=== PATIENT | male | born 1980 | race Caucasian/White ===

== ENCOUNTER 2021-04-15 22:43 | Observation (INO) | payer BC ==
[2021-04-15 23:41] LABS: #Eosinphils 0.1 thou/uL (0.0-0.7); #Lymphocytes 1.5 thou/uL (1.20-3.40); #Monocytes 0.9 thou/uL (0.11-0.59); #Neutrophils 9.4 thou/uL (1.40-6.50); %Basophils 0.3 % (0.0-1.0); %Eosinophils 0.9 % (0.0-10.0); %Lymphocytes 12.7 % (21.0-51.0); %Monocytes 7.8 % (0.0-10.0); %Neutrophils 78.3 % (42.0-75.0); Hemoglobin 14.5 g/dL (14.0-18.0); Mean Corpuscular HGB CONC 33.8 g/dL (32.0-36.0); Mean Corpuscular Hemoglobin 30.1 pg (27.0-31.0); Mean Corpuscular Volume 89.2 fL (78.0-98.0); Platelet Count 180 thou/uL (130-400); RBC Distribution Width 11.9 % (11.5-14.5); Red Blood Cell (RBC) Count 4.82 mill/uL (4.70-6.10)
[2021-04-15 23:43] LABS: Bacteria/HPF None Seen HPF (None Seen); Bilirubin Negative (Negative); Blood, Urine 3+ (Negative); Clarity Turbid (Clear); Glucose, Urine (Dipstick) Normal (Negative); Ketone, Urine Negative (Negative); Leukocyte Negative Leu/uL (Negative); Nitrite Negative (Negative); Protein, Urine (Dipstick) 50 mg/dL (Neg-Trace); RBC/HPF Greater than 50 HPF (0-3); Squamous Epithelial 0-3 HPF (0-3); Urobilinogen Normal mg/dL (Less than 2); pH, Urine 5.5 (5.0-9.0)
[2021-04-16 00:04] LABS: ALT (SGPT) 90 U/L (8-55); AST (SGOT) 35 U/L (5-34); Albumin 4.4 g/dL (3.5-5.0); Alkaline Phosphatase 66 U/L (40-110); Anion Gap 11 mmol/L (10-20); BUN (Urea Nitrogen) 12 mg/dL (8.9-20.6); Bilirubin, Total 0.5 mg/dL (0.2-1.2); Calc. Creatinine Clearance 0 mL/min (70-130); Calcium 9.6 mg/dL (7.8-10.44); Carbon Dioxide 29 mmol/L (22-29); Chloride 105 mmol/L (98-107); Globulin 3.1 g/dL (2.4-3.5); Glucose 131 mg/dL (70-105); Potassium 4.4 mmol/L (3.5-5.1); Protein, Total 7.5 g/dL (6.0-8.3); Sodium 141 mmol/L (136-145)
[2021-04-16] MEDS ORDERED: Ondansetron PF 4 MG/2 ML Vial ONE ×3 (00:04→13:54)
[2021-04-16] MEDS ORDERED: Morphine 4 MG/ML VIAL ONE ×3 (00:04→15:10)
[2021-04-16] MEDS ORDERED: Ketorolac Tromethamine 30 MG/ML VIAL IVP PRN (00:46)
[2021-04-16] MEDS ORDERED: HYDROcodone/Acetaminophen 10/325 mg Tablet PO PRN (00:47)
[2021-04-16] MEDS ORDERED: cefTRIAXone\\ROCEPHIN 2 GM VIAL ONE (00:52)
[2021-04-16] MEDS ORDERED: Acetaminophen 325 MG TAB PO PRN (01:35)
[2021-04-16] MEDS: Sodium Chloride 0.9% 1,000 ML IV SCH ×4 (02:38→23:26)
[2021-04-16] MEDS: Morphine 4 MG/ML VIAL SLOW IVP PRN ×2 (02:38→08:31)
[2021-04-16 03:04] VITALS: BMI 36.6
[2021-04-16 05:55] LABS: #Monocytes 0.9 thou/uL (0.11-0.59); #Neutrophils 9.2 thou/uL (1.40-6.50); %Basophils 0.1 % (0.0-1.0); %Eosinophils 0.2 % (0.0-10.0); %Lymphocytes 9.2 % (21.0-51.0); %Monocytes 7.6 % (0.0-10.0); Hemoglobin 13.8 g/dL (14.0-18.0); Mean Corpuscular HGB CONC 33.5 g/dL (32.0-36.0); Mean Corpuscular Hemoglobin 29.9 pg (27.0-31.0); Mean Corpuscular Volume 89.1 fL (78.0-98.0); Mean Platelet Volume 9.6 fL (7.4-10.4); Platelet Count 170 thou/uL (130-400); RBC Distribution Width 11.9 % (11.5-14.5); Red Blood Cell (RBC) Count 4.63 mill/uL (4.70-6.10); White Blood Cell (WBC) Count 11.1 thou/uL (4.8-10.8)
[2021-04-16 06:10] LABS: Anion Gap 10 mmol/L (10-20); BUN (Urea Nitrogen) 12 mg/dL (8.9-20.6); Calc. Creatinine Clearance 128 mL/min (70-130); Calcium 8.7 mg/dL (7.8-10.44); Carbon Dioxide 25 mmol/L (22-29); Chloride 108 mmol/L (98-107); Glucose 122 mg/dL (70-105); Potassium 4.4 mmol/L (3.5-5.1); Sodium 139 mmol/L (136-145)
[2021-04-16 06:11] LABS: Hemoglobin A1c 5.2 % (4.0-6.0)
[2021-04-16 06:21] LABS: Cardiac Risk 4.8 (Less than 4.5)
[2021-04-16] MEDS ORDERED: Enoxaparin Sodium 40 MG/0.4 ML SYRINGE SC SCH (09:00)
[2021-04-16 10:25] LABS: SARS-CoV-2 NAA Rapid Test Not Detected (NotDetected)
[2021-04-16] MEDS ORDERED: Fentanyl 100 MCG/2 ML VIAL ONE ×2 (13:21→13:39)
[2021-04-16] MEDS ORDERED: Iothalamate Meglumine 60% 50 ML VIAL FS ONE (13:48)
[2021-04-16] MEDS ORDERED: Dexamethasone 20 MG/5 ML VIAL ONE (13:54)
[2021-04-16] MEDS ORDERED: PROPOFOL 200 MG/20 ML VIAL ONE (13:54)
[2021-04-16] MEDS ORDERED: Levofloxacin 500 mg/D5W 100 ml Premix Bag ONE (14:08)
[2021-04-16] MEDS ORDERED: hydrALAZINE 20 MG/ML VIAL SLOW IVP PRN ×2 (14:58)
[2021-04-16] MEDS ORDERED: Mag-Al 1200 mg/1200 mg/30 ML UDCUP PO PRN (14:58)
[2021-04-16] MEDS ORDERED: Oxybutynin 5 MG TAB PO PRN (14:58)
[2021-04-16] MEDS ORDERED: diphenhydrAMINE 50 MG/ML VIAL IVP PRN (14:58)
[2021-04-16] MEDS ORDERED: HYDROcodone/Acetaminophen 5/325 mg Tablet PO PRN ×2 (14:58)
[2021-04-16] MEDS ORDERED: Phenazopyridine HCl 100 MG TAB PO PRN (15:04)
[2021-04-16] MEDS ORDERED: Non-Formulary Medication 1 EACH PO PRN (15:19)
[2021-04-16] MEDS ORDERED: Morphine Sulfate 2 MG/ML SYRINGE SLOW IVP PRN (15:30)
[2021-04-16] MEDS ORDERED: Promethazine HCl 25 MG/ML VIAL IM/IV PRN (15:30)
[2021-04-16] MEDS ORDERED: Ondansetron HCl/PF 4 MG/2 ML Vial IVP PRN (15:30)
[2021-04-16] MEDS ORDERED: PACU-Morphine 4MG/ML VIAL SLOW IVP PRN (15:30)
[2021-04-16] MEDS: Docusate 100 MG CAP PO SCH (20:59)
[2021-04-16] MEDS: Famotidine/PF 20 mg/2ml Vial SLOW IVP SCH (20:59)
[2021-04-16] MEDS ORDERED: cefTRIAXone\\ROCEPHIN 1 GM in Sodium Chloride 0.9% 100 ML IVPB SCH (23:00)
[2021-04-17 04:02] VITALS: TEMP 97.9
[2021-04-17 06:03] LABS: %Basophils 0.3 % (0.0-1.0); %Eosinophils 0.1 % (0.0-10.0); %Lymphocytes 9.1 % (21.0-51.0); %Monocytes 8.7 % (0.0-10.0); %Neutrophils 81.9 % (42.0-75.0); Mean Corpuscular HGB CONC 32.6 g/dL (32.0-36.0); Mean Corpuscular Hemoglobin 29.5 pg (27.0-31.0); Mean Corpuscular Volume 90.4 fL (78.0-98.0); Mean Platelet Volume 9.8 fL (7.4-10.4); Platelet Count 163 thou/uL (130-400); RBC Distribution Width 11.7 % (11.5-14.5); Red Blood Cell (RBC) Count 4.42 mill/uL (4.70-6.10)
[2021-04-17 07:37] LABS: Chloride 108 mmol/L (98-107); Potassium 3.9 mmol/L (3.5-5.1); Sodium 140 mmol/L (136-145)
[2021-04-17 07:38] LABS: Calcium 8.5 mg/dL (7.8-10.44); Glucose 110 mg/dL (70-105)
[2021-04-17 07:40] LABS: Anion Gap 11 mmol/L (10-20); Carbon Dioxide 25 mmol/L (22-29)
[2021-04-17 07:42] LABS: BUN (Urea Nitrogen) 15 mg/dL (8.9-20.6); Calc. Creatinine Clearance 149 mL/min (70-130)
[2021-04-17] MEDS ORDERED: Tamsulosin HCl 0.4 MG CAP PO SCH (09:00)
[2021-04-17] MEDS: Docusate 100 MG CAP PO SCH (10:47)
[2021-04-17] MEDS: Famotidine/PF 20 mg/2ml Vial SLOW IVP SCH (10:47)
[2021-04-17] MEDS: Sodium Chloride 0.9% 1,000 ML IV SCH (10:48)
[2021-04-17 12:10] VITALS: BP 134/82
== END 2021-04-17 13:17 | disposition home or self-care (01) ==
LOC: ERS 22:43 → SURG B 04-16 00:59 → SJJU 04-16 02:36
PROVIDERS: ADMIT Student in an Organized Health Care Education/Training Program; ATTEND Internal Medicine
PROC: 0T768DZ Dilation of Right Ureter with Intraluminal Device, Via Natural or Artificial Opening Endoscopic (ICD-10-PCS; principal; 2021-04-16)
DX: N13.2 Hydronephrosis with renal and ureteral calculous obstruction (principal); N35.911 Unspecified urethral stricture, male, meatal; N40.0 Benign prostatic hyperplasia without lower urinary tract symptoms; Q64.4 Malformation of urachus; N36.8 Other specified disorders of urethra; F17.220 Nicotine dependence, chewing tobacco, uncomplicated; K76.0 Fatty (change of) liver, not elsewhere classified; R16.2 Hepatomegaly with splenomegaly, not elsewhere classified; Z20.822 Contact with and (suspected) exposure to COVID-19
CPT/HCPCS: 36415; 74018; 74420; 80048; 80053; 80061; 81003; 81015; 83036; 85025; 87086; 96365; 96375; 96376; C2617; G0378; J0696; J1100; J1885; J1956; J2270; J2405; J2704; J3010; J3490; Q9961; S0028; U0002; U0005

== ENCOUNTER 2021-04-25 14:46 | Outpatient (CLI) | payer BC ==
[2021-04-25 16:00] LABS: Hemoglobin 14.2 g/dL (13.5-17.5); Mean Corpuscular HGB CONC 32.5 g/dL (32.0-36.0); Mean Corpuscular Volume 89.4 fl (81.2-95.1); Mean Platelet Volume 11.5 fl (7.4-10.4); Platelet Count 220 10x3/uL (150-450); RBC Distribution Width 12.3 % (11.5-14.5); Red Blood Cell (RBC) Count 4.89 10x6/uL (4.32-5.72); White Blood Cell (WBC) Count 7.7 10x3/uL (3.5-10.5)
[2021-04-25 16:16] LABS: Anion Gap 14 mmol/L (10-20); BUN (Urea Nitrogen) 15 mg/dL (8.9-20.6); Calc. Creatinine Clearance 0 mL/min (70-130); Calcium 9.7 mg/dL (7.8-10.44); Carbon Dioxide 27 mmol/L (22-29); Chloride 106 mmol/L (98-107); Glucose 88 mg/dL (70-105); INR-International Normal Ratio 0.9; PTT 25.9 sec (22.0-33.0); Potassium 4.6 mmol/L (3.5-5.1); Prothrombin Time 10.2 sec (9.5-12.1); Sodium 142 mmol/L (136-145)
== END 2021-04-25 14:47 | disposition home or self-care (01) ==
LOC: LABBT 14:46
PROVIDERS: ATTEND Urology
DX: Z01.818 Encounter for other preprocedural examination (principal); N20.0 Calculus of kidney
CPT/HCPCS: 80048; 85027; 85610; 85730; 93005; 93010

== ENCOUNTER 2021-04-30 09:36 | Day surgery (SDC) | payer BC ==
[2021-04-29 12:01] VITALS: BMI 32.8
[2021-04-30] MEDS ORDERED: cefTRIAXone\\ROCEPHIN 2 GM VIAL ONE (09:52)
[2021-04-30] MEDS ORDERED: Sodium Chloride 0.9% 100 ML ONE (09:53)
[2021-04-30] MEDS ORDERED: Fentanyl 100 MCG/2 ML VIAL ONE ×2 (11:29→12:50)
[2021-04-30] MEDS ORDERED: Midazolam HCl 2 mg/2 ml Vial ONE (11:29)
[2021-04-30] MEDS ORDERED: Iothalamate Meglumine 60% 30 ML VIAL FS ONE (11:31)
[2021-04-30] MEDS ORDERED: SUGAMMADEX SODIUM 200 MG/2 ML VIAL ONE (11:34)
[2021-04-30] MEDS ORDERED: Succinylcholine 200 MG/10 ml SYRINGE FS ONE (11:43)
[2021-04-30] MEDS ORDERED: PROPOFOL 200 MG/20 ML VIAL ONE (11:43)
[2021-04-30] MEDS ORDERED: Ondansetron PF 4 MG/2 ML Vial ONE (11:43)
[2021-04-30] MEDS ORDERED: Lidocaine 1% PF 5 ML VIAL ONE (11:43)
[2021-04-30] MEDS ORDERED: Glycopyrrolate 0.2 MG/ML 5 ML SYRINGE ONE (11:43)
[2021-04-30] MEDS ORDERED: Rocuronium Bromide 10 MG/ML (10ML VIAL) ONE (11:43)
[2021-04-30] MEDS ORDERED: Dexamethasone 20 MG/5 ML VIAL ONE (11:43)
[2021-04-30] MEDS ORDERED: Phenazopyridine HCl 100 MG TAB ONE (13:39)
[2021-04-30] MEDS ORDERED: HYDROcodone/Acetaminophen 5/325 mg Tablet ONE (15:24)
== END 2021-04-30 16:58 | disposition home or self-care (01) ==
LOC: SDC 09:36
PROVIDERS: ATTEND Urology
PROC: 0TC68ZZ Extirpation of Matter from Right Ureter, Via Natural or Artificial Opening Endoscopic (ICD-10-PCS; principal; 2021-04-30)
PROC: 0T768DZ Dilation of Right Ureter with Intraluminal Device, Via Natural or Artificial Opening Endoscopic (ICD-10-PCS; principal; 2021-04-30)
DX: N20.1 Calculus of ureter (principal); N35.911 Unspecified urethral stricture, male, meatal; Z87.891 Personal history of nicotine dependence
CPT/HCPCS: 74018; 74420; 82365; 88300; C2617; J0696; J1100; J2250; J2405; J2704; J3010; J3490

== ENCOUNTER 2021-09-01 09:42 | Outpatient (CLI) | payer BC | END 2021-09-01 09:43 | disposition home or self-care (01) | LOC: BICULT 09:42 | PROVIDERS: ATTEND Urology | DX: R35.0 Frequency of micturition (principal); Z98.890 Other specified postprocedural states | CPT/HCPCS: 74018; 76770 ==

== ENCOUNTER 2023-09-01 12:52 | Outpatient (CLI) | payer BC | END 2023-09-01 12:53 | disposition home or self-care (01) | LOC: DTY/OP 12:52 | PROVIDERS: ATTEND Specialist | DX: E66.9 Obesity, unspecified (principal) | CPT/HCPCS: 97802 ==

== ENCOUNTER 2024-03-13 10:55 | Observation (INO) | payer BC, SELFPAY ==
[2024-03-13 11:37] VITALS: BMI 36.6
[2024-03-13] MEDS ORDERED: Ondansetron ORAL SOLN. 4 MG/5 ML UDCUP PO PRN (13:34)
[2024-03-13] MEDS ORDERED: Acetaminophen 650 MG Suppository PR PRN (13:35)
[2024-03-13] MEDS: Morphine 2 MG/ML VIAL SLOW IVP PRN (14:44)
[2024-03-13] MEDS: Sodium Chloride 0.9% 1,000 ML IV SCH (14:50)
[2024-03-13] MEDS: Ondansetron PF 4 MG/2 ML Vial IVP PRN (14:54)
[2024-03-13] MEDS: hydrALAZINE 20 MG/ML VIAL SLOW IVP PRN (20:03)
[2024-03-13] MEDS: Acetaminophen 325 MG TAB PO PRN (22:52)
[2024-03-14 05:05] LABS: #Basophils Less than 0.03 10x3/uL (0.0-0.2); %Basophils 0.3 % (0.0-1.0); %Eosinophils 2.4 % (0.0-10.0); %Lymphocytes 17.8 % (21.0-51.0); %Monocytes 14.3 % (0.0-10.0); %Neutrophils 64.9 % (42.0-75.0); Hematocrit 43.8 % (42.0-52.0); Hemoglobin 14.2 g/dL (14.0-18.0); Mean Corpuscular HGB CONC 32.4 g/dL (32.0-36.0); Mean Corpuscular Hemoglobin 28.9 pg (27.0-31.0); Mean Corpuscular Volume 89.2 fL (78.0-98.0); Mean Platelet Volume 11.5 fL (7.4-10.4); Platelet Count 181 10x3/uL (130-400); RBC Distribution Width 12.3 % (11.5-14.5); Red Blood Cell (RBC) Count 4.91 mill/uL (4.70-6.10)
[2024-03-14 05:48] LABS: ALT (SGPT) 46 U/L (8-55); AST (SGOT) 21 U/L (5-34); Albumin 3.5 g/dL (3.5-5.0); Alkaline Phosphatase 62 U/L (40-110); Anion Gap 11 mmol/L (10-20); BUN (Urea Nitrogen) 11 mg/dL (8.9-20.6); Calc. Creatinine Clearance 207 mL/min (70-130); Calcium 8.8 mg/dL (7.8-10.44); Carbon Dioxide 25 mmol/L (22-29); Chloride 107 mmol/L (98-107); Estimated GFR 115; Globulin 3.3 g/dL (2.4-3.5); Glucose 109 mg/dL (70-105); Potassium 3.9 mmol/L (3.5-5.1); Protein, Total 6.8 g/dL (6.0-8.3); Sodium 139 mmol/L (136-145)
[2024-03-14] MEDS ORDERED: MD-Gastroview 120 ML BOT ONE (09:44)
[2024-03-14 16:57] VITALS: TEMP 98.3
[2024-03-14 18:48] VITALS: BP 164/92
[2024-03-15] MEDS ORDERED: Nicotine 21 MG PATCH TD SCH (14:00)
== END 2024-03-14 18:50 | disposition home or self-care (01) ==
LOC: INTOOBSV 10:55 → SURG B 10:55
PROVIDERS: ADMIT Internal Medicine; ATTEND Family Medicine
DX: K56.7 Ileus, unspecified (principal); K56.600 Partial intestinal obstruction, unspecified as to cause; I10 Essential (primary) hypertension; F17.290 Nicotine dependence, other tobacco product, uncomplicated
CPT/HCPCS: 74018; 74250; 80053; 85025; 96374; 96375; 96376; G0378; J0360; J2272; J2405; J7050; Q9963